=== PATIENT | male | born 1970 | race Hispanic/Latino ===

== ENCOUNTER 2023-07-02 11:10 | Outpatient (CLI) | payer BC ==
[2023-07-02] MEDS ORDERED: Iopamidol 300 61% 100 ML VIAL FS ONE (11:31)
== END 2023-07-02 11:11 | disposition home or self-care (01) ==
LOC: CSHCT 11:10
PROVIDERS: ATTEND Internal Medicine Critical Care Medicine
DX: J84.10 Pulmonary fibrosis, unspecified (principal); J44.9 Chronic obstructive pulmonary disease, unspecified; I27.20 Pulmonary hypertension, unspecified; I51.7 Cardiomegaly; R63.4 Abnormal weight loss
CPT/HCPCS: 71260; 94010; 94726; 94729; 94760; Q9967

== ENCOUNTER 2023-12-24 15:48 | Outpatient (CLI) | payer BC | END 2023-12-24 15:49 | disposition home or self-care (01) | LOC: CSHCP 15:48 | PROVIDERS: ATTEND Internal Medicine Critical Care Medicine | DX: J84.112 Idiopathic pulmonary fibrosis (principal); J98.4 Other disorders of lung | CPT/HCPCS: 94010; 94726; 94729; 94760 ==